=== PATIENT | female | born 1980 | race Caucasian/White ===

== ENCOUNTER 2016-07-16 08:11 | Emergency (ER) | payer OTHER ==
[~2016-07-16] VITALS: Ht 152.4 cm; Wt 75.3 kg
[2016-07-16 13:08] VITALS: BP 120/87
== END 2016-07-16 13:08 | disposition home or self-care (01) ==
LOC: ED 08:11
DX: S29.012A Strain of muscle and tendon of back wall of thorax, initial encounter (principal); S39.012A Strain of muscle, fascia and tendon of lower back, initial encounter; V89.2XXA Person injured in unspecified motor-vehicle accident, traffic, initial encounter; Y93.89 Activity, other specified; Y99.8 Other external cause status; Y92.410 Unspecified street and highway as the place of occurrence of the external cause